=== PATIENT | female | born 1995 ===

== ENCOUNTER 2021-11-19 06:01 | Outpatient (CLI) | payer OTHER ==
[2021-11-19] MEDS ORDERED: PRENATAL TABLE1 EAC1 PO (06:06)
[2021-11-19] MEDS ORDERED: MACROBID 100 M100 MG PO (06:07)
== END 2021-11-19 18:50 | disposition home or self-care (01) ==
LOC: OBS/DEL 06:01
PROVIDERS: ATTEND Obstetrics & Gynecology
DX: O47.1 False labor at or after 37 completed weeks of gestation (principal); Z3A.39 39 weeks gestation of pregnancy